=== PATIENT | male | born 1940 | race Hispanic/Latino ===

== ENCOUNTER 2021-01-05 13:04 | Inpatient (IN) | payer OTHER ==
[~2021-01-05] VITALS: Ht 170.2 cm; Wt 79.4 kg
[~2021-01-05 13:04] MED LIST: ACTOS15 MG PO; ASPIRIN81 MG PO; CIPROFLOXACIN500 M1 PO; COUMADIN3 MG PO; DOXAZOSIN MESYLA4 MG PO; FINASTERIDE5 MG PO; GLIMEPIRIDE4 MG PO; HYDROCHLOROTH12.5 MG PO; LANOXIN250 MCG PO; LOPRESSOR25 MG PO; METFORMIN HCL500 MG PO; MEVACOR20 MG PO; NORVASC10 MG PO; ZESTRIL20 MG PO
[2021-01-05 13:47] LABS: BASOPHILS % 0.1 % (0.0-1.0); HEMATOCRIT 34.8 % (38.2-49.6); HEMOGLOBIN 10.5 g/dL (14.0-18.0); LYMPHOCYTES # (AUTO) 0.6 (1.0-3.2); LYMPHOCYTES % 6.7 % (18.0-39.1); MEAN CORPUSCULAR HEMOGLOBIN 25.6 pg (28-32); MEAN CORPUSCULAR HGB CONC 30.2 g/dL (31-35); MEAN CORPUSCULAR VOLUME 84.9 fL (81-99); MONOCYTES # (AUTO) 1.1 (0.2-0.8); MONOCYTES % 11.7 % (4.4-11.3); NEUTROPHILS # (AUTO) 7.6 (2.1-6.9); NEUTROPHILS % 79.9 % (38.7-80.0); PLATELET COUNT 141 x10e3/uL (140-360); RED CELL DISTRIBUTION WIDTH 22.5 % (11.7-14.4)
[2021-01-05 14:12] LABS: ALBUMIN 2.7 g/dL (3.5-5.0); ALBUMIN/GLOBULIN RATIO 0.8 (0.8-2.0); ANION GAP 23.5 mmol/L (8-16); CALCIUM 8.4 mg/dL (8.4-10.2); CREATININE, SERUM 2.11 mg/dL (0.72-1.25); POTASSIUM 4.5 mmol/L (3.5-5.1)
[2021-01-05] MEDS ORDERED: SODIUM CHLORIDE 0.9% 1000ML 1,000 ML IV SCH ×2 (14:30→16:15)
[2021-01-05] MEDS ORDERED: INSULIN REGULAR, HUMAN 100 UNIT/1 ML IV ONE (14:30)
[2021-01-05] MEDS ORDERED: IOPAMIDOL 370 MG/ML 200 ML INFUS..BTL INJ ONE (14:45)
[2021-01-05] MEDS ORDERED: SODIUM CHLORIDE 0.9% 50ML 50 ML ONE (14:45)
[2021-01-05] MEDS: PIPERACILLIN/TAZO 4.5 GM 100 ML IV SCH (14:49)
[2021-01-05 15:06] LABS: PROTHROMBIN TIME > 120.0 seconds (11.9-14.5)
[2021-01-05 15:22] LABS: ABG HCO3 16 mmol/L (22-26); ABG PCO2 25 mmHg (35-45); ABG PH 7.42 (7.35-7.45); ABG PO2 71 mmHg (80-105); ABG TCO2 17
[2021-01-05] MEDS ORDERED: ONDANSETRON HCL INJ 2MG/ML 2ML 2 MG/ML VIAL IV PRN (16:45)
[2021-01-05 18:12] VITALS: BP 122/69
[2021-01-05 18:13] VITALS: BP 122/69
[2021-01-05 18:15] VITALS: BP 122/69
[2021-01-05] MEDS: SODIUM CHLORIDE 0.9% 1000ML 1,000 ML IV SCH (18:46)
[2021-01-05 20:00] VITALS: BP 114/64
[2021-01-06] VITALS (7 sets, daily range): BP systolic 96–133; BP diastolic 42–78
[2021-01-06] MEDS ORDERED: PHYTONADIONE 10 MG/ML AMP IV ONE (02:15)
[2021-01-06] MEDS ORDERED: PHYTONADIONE 10MG/ML 20 MG in SODIUM CHLORIDE 0.9% 50ML 50 ML SC ONE (02:45)
[2021-01-06] MEDS: PIPERACILLIN/TAZO 4.5 GM 100 ML IV SCH ×2 (03:00→15:00)
[2021-01-06] MEDS: SODIUM CHLORIDE 0.9% 1000ML 1,000 ML IV SCH (04:30)
[2021-01-06 05:02] LABS: BASOPHILS % 0.1 % (0.0-1.0); HEMATOCRIT 28.4 % (38.2-49.6); HEMOGLOBIN 8.5 g/dL (14.0-18.0); LYMPHOCYTES # (AUTO) 0.5 (1.0-3.2); LYMPHOCYTES % 5.7 % (18.0-39.1); MEAN CORPUSCULAR HEMOGLOBIN 25.5 pg (28-32); MEAN CORPUSCULAR HGB CONC 29.9 g/dL (31-35); MEAN CORPUSCULAR VOLUME 85.3 fL (81-99); MONOCYTES # (AUTO) 1.1 (0.2-0.8); MONOCYTES % 12.7 % (4.4-11.3); NEUTROPHILS # (AUTO) 6.6 (2.1-6.9); NEUTROPHILS % 80.3 % (38.7-80.0); PLATELET COUNT 90 x10e3/uL (140-360); RED BLOOD COUNT 3.33 x10e6/uL (4.3-5.7); RED CELL DISTRIBUTION WIDTH 22.5 % (11.7-14.4)
[2021-01-06 05:26] LABS: ANION GAP 18.1 mmol/L (8-16); CALCIUM 7.8 mg/dL (8.4-10.2); CREATININE, SERUM 1.62 mg/dL (0.72-1.25); POTASSIUM 4.1 mmol/L (3.5-5.1)
[2021-01-06] MEDS ORDERED: DEXTROSE 50% SYRINGE 50 ML IV PRN (08:45)
[2021-01-06] MEDS ORDERED: DOXAZOSIN MESYLATE 2 MG TAB PO SCH (09:00)
[2021-01-06] MEDS ORDERED: SODIUM CHLORIDE 0.9% 250ML 250 ML ONE ×2 (09:09→16:17)
[2021-01-06] MEDS: METOPROLOL TARTRATE 50 MG TAB PO SCH ×2 (10:03→17:02)
[2021-01-06] MEDS: FINASTERIDE 5 MG TAB PO SCH (10:03)
[2021-01-06 10:23] LABS: PLATELET ESTIMATE MODERATELY DECREASED; PLATELET MORPHOLOGY COMMENT FEW LARGE; RBC MORPHOLOGY COMMENT NORMAL
[2021-01-06 10:24] LABS: ANISOCYTOSIS SLIGHT; HYPOCHROMASIA SLIGHT
[2021-01-06] MEDS: INSULIN LISPRO 100 UNIT/1 ML 3ML VIAL SQ SCH ×3 (11:30→20:44)
[2021-01-06 14:29] LABS: INR 1.12; PROTHROMBIN TIME 15.3 seconds (11.9-14.5)
[2021-01-06 14:30] LABS: PARTIAL THROMBOPLASTIN TIME 39.1 seconds (23.8-35.5)
[2021-01-06 15:32] LABS: FERRITIN 2278.15 ng/mL (21.81-274.66)
[2021-01-06 17:59] LABS: CLARITY,URINE CLEAR (CLEAR); COLOR,URINE YELLOW (YELLOW); KETONES,URINE NEGATIVE (NEGATIVE); LEUKOCYTE ESTERASE ,URINE NEGATIVE (NEGATIVE); NITRITE,URINE NEGATIVE (NEGATIVE); PROTEIN,URINE DIPSTICK 1+ (NEGATIVE); URINE UROBILINOGEN 0.2 mg/dL (0.2 - 1)
[2021-01-06 18:15] LABS: BACTERIA,URINE MODERATE /HPF
[2021-01-07] VITALS (8 sets, daily range): BP systolic 100–135; BP diastolic 46–73
[2021-01-07] MEDS: PIPERACILLIN/TAZO 4.5 GM 100 ML IV SCH ×2 (03:04→16:00)
[2021-01-07 04:59] LABS: HEMOGLOBIN 7.8 g/dL (14.0-18.0); MEAN CORPUSCULAR HEMOGLOBIN 25.5 pg (28-32); PLATELET COUNT 87 x10e3/uL (140-360); RED BLOOD COUNT 3.06 x10e6/uL (4.3-5.7); RED CELL DISTRIBUTION WIDTH 22.8 % (11.7-14.4)
[2021-01-07 05:11] LABS: INR 1.02; PROTHROMBIN TIME 14.2 seconds (11.9-14.5)
[2021-01-07 05:12] LABS: PARTIAL THROMBOPLASTIN TIME 34.7 seconds (23.8-35.5)
[2021-01-07 05:19] LABS: MAGNESIUM 2.6 MG/DL (1.3-2.1); PHOSPHORUS 2.9 MG/DL (2.3-4.7)
[2021-01-07 05:42] LABS: THYROID STIMULATING HORMONE 0.353 uIU/mL (0.350-4.940)
[2021-01-07] MEDS: INSULIN LISPRO 100 UNIT/1 ML 3ML VIAL SQ SCH ×4 (08:30→21:42)
[2021-01-07 08:34] LABS: LYMPHOCYTES % (MANUAL) 2 % (19-48); METAMYELOCYTES % (MANUAL) 3 % (0-0); MONOCYTES % (MANUAL) 2 % (3.4-9.0); NEUTROPHILS % (MANUAL) 93 % (40-74); NUCLEATED RED BLOOD CELLS 1
[2021-01-07] MEDS ORDERED: IRON SUCROSE 100 MG in SODIUM CHLORIDE 0.9% 100 ML 100 ML IV SCH (09:00)
[2021-01-07] MEDS: FINASTERIDE 5 MG TAB PO SCH (09:00)
[2021-01-07] MEDS: METOPROLOL TARTRATE 50 MG TAB PO SCH ×2 (09:58→21:57)
[2021-01-07] MEDS ORDERED: FENTANYL CITRATE/PF 100MCG/2 ML INJ ONE (14:32)
[2021-01-07] MEDS ORDERED: MIDAZOLAM HCL 2 MG/2 ML VIAL ONE (14:32)
[2021-01-07] MEDS ORDERED: SODIUM CHLORIDE 0.9% 500ML 500 ML ONE (14:34)
[2021-01-07] MEDS: TAMSULOSIN HCL 0.4 MG CAP PO SCH (21:50)
[2021-01-07] MEDS: IRON SUCROSE 100 MG in SODIUM CHLORIDE 0.9% 100 ML 100 ML IV SCH (21:57)
[2021-01-08] VITALS (7 sets, daily range): BP systolic 91–107; BP diastolic 45–70
[2021-01-08] MEDS: PIPERACILLIN/TAZO 4.5 GM 100 ML IV SCH ×2 (03:19→15:39)
[2021-01-08 05:45] LABS: HEMATOCRIT 26.2 % (38.2-49.6); LYMPHOCYTES # (AUTO) 0.6 (1.0-3.2); LYMPHOCYTES % 6.1 % (18.0-39.1); MEAN CORPUSCULAR HEMOGLOBIN 25.8 pg (28-32); MEAN CORPUSCULAR HGB CONC 30.5 g/dL (31-35); MEAN CORPUSCULAR VOLUME 84.5 fL (81-99); MONOCYTES # (AUTO) 0.9 (0.2-0.8); MONOCYTES % 10.4 % (4.4-11.3); NEUTROPHILS # (AUTO) 7.5 (2.1-6.9); NEUTROPHILS % 82.5 % (38.7-80.0); PLATELET COUNT 94 x10e3/uL (140-360); RED CELL DISTRIBUTION WIDTH 23.7 % (11.7-14.4)
[2021-01-08 06:13] LABS: ALBUMIN 2.2 g/dL (3.5-5.0); ALBUMIN/GLOBULIN RATIO 0.6 (0.8-2.0); ANION GAP 19.7 mmol/L (8-16); CALCIUM 8.6 mg/dL (8.4-10.2); CREATININE, SERUM 1.85 mg/dL (0.72-1.25); POTASSIUM 3.7 mmol/L (3.5-5.1)
[2021-01-08] MEDS: Morphine 4mg Syringe 4 MG/ML INJ IV PRN (08:47)
[2021-01-08] MEDS: FINASTERIDE 5 MG TAB PO SCH (08:50)
[2021-01-08] MEDS: INSULIN LISPRO 100 UNIT/1 ML 3ML VIAL SQ SCH ×4 (08:54→20:57)
[2021-01-08] MEDS: METOPROLOL TARTRATE 50 MG TAB PO SCH ×2 (16:34→20:56)
[2021-01-08] MEDS ORDERED: Vancomycin IV 1 GM in SODIUM CHLORIDE 0.9% 250ML 250 ML IV ONE (19:15)
[2021-01-08] MEDS: TAMSULOSIN HCL 0.4 MG CAP PO SCH (20:56)
[2021-01-08] MEDS: IRON SUCROSE 100 MG in SODIUM CHLORIDE 0.9% 100 ML 100 ML IV SCH (21:00)
[2021-01-09] MEDS: PIPERACILLIN/TAZO 4.5 GM 100 ML IV SCH ×2 (03:31→17:03)
[2021-01-09 05:31] VITALS: BP 103/53
[2021-01-09 05:54] LABS: BASOPHILS % 0.1 % (0.0-1.0); HEMATOCRIT 26.2 % (38.2-49.6); HEMOGLOBIN 7.7 g/dL (14.0-18.0); LYMPHOCYTES # (AUTO) 0.5 (1.0-3.2); MEAN CORPUSCULAR HEMOGLOBIN 26.1 pg (28-32); MEAN CORPUSCULAR HGB CONC 29.4 g/dL (31-35); MEAN CORPUSCULAR VOLUME 88.8 fL (81-99); MONOCYTES # (AUTO) 0.7 (0.2-0.8); MONOCYTES % 9.3 % (4.4-11.3); NEUTROPHILS # (AUTO) 6.5 (2.1-6.9); NEUTROPHILS % 83.4 % (38.7-80.0); PLATELET COUNT 96 x10e3/uL (140-360); RED BLOOD COUNT 2.95 x10e6/uL (4.3-5.7); RED CELL DISTRIBUTION WIDTH 24.3 % (11.7-14.4)
[2021-01-09 06:24] LABS: ALBUMIN 2.2 g/dL (3.5-5.0); ALBUMIN/GLOBULIN RATIO 0.6 (0.8-2.0); ANION GAP 20.4 mmol/L (8-16); CALCIUM 8.9 mg/dL (8.4-10.2); CREATININE, SERUM 2.13 mg/dL (0.72-1.25); POTASSIUM 3.4 mmol/L (3.5-5.1)
[2021-01-09] MEDS: INSULIN LISPRO 100 UNIT/1 ML 3ML VIAL SQ SCH ×4 (07:30→21:05)
[2021-01-09 07:35] VITALS: BP 105/58
[2021-01-09 07:44] VITALS: BP 105/58
[2021-01-09] MEDS: Vancomycin IV 1 GM in SODIUM CHLORIDE 0.9% 250ML 250 ML IV SCH ×2 (08:12→21:01)
[2021-01-09] MEDS ORDERED: DORZOLAMIDE-TIM10 ML OP (08:28)
[2021-01-09] MEDS ORDERED: LATANOPROST2.5 ML OP (08:28)
[2021-01-09] MEDS: METOPROLOL TARTRATE 50 MG TAB PO SCH ×2 (09:00→20:59)
[2021-01-09] MEDS ORDERED: MIDAZOLAM HCL 2 MG/2 ML VIAL ONE (10:11)
[2021-01-09] MEDS ORDERED: FENTANYL CITRATE/PF 100MCG/2 ML INJ ONE (10:11)
[2021-01-09] MEDS ORDERED: SODIUM CHLORIDE 0.9% 500ML 500 ML ONE (10:12)
[2021-01-09] MEDS: FINASTERIDE 5 MG TAB PO SCH (11:32)
[2021-01-09 16:04] VITALS: BP 110/50
[2021-01-09] MEDS: DORZOLAMIDE/TIMOLOL (OPTH SOL) 10 ML DRPETTE OP SCH (17:03)
[2021-01-09 20:00] VITALS: BP 112/58
[2021-01-09] MEDS: TAMSULOSIN HCL 0.4 MG CAP PO SCH (20:57)
[2021-01-09] MEDS: LATANOPROST(OPTH) 2.5 ML BTL OP SCH (20:57)
[2021-01-09] MEDS: IRON SUCROSE 100 MG in SODIUM CHLORIDE 0.9% 100 ML 100 ML IV SCH (20:57)
[2021-01-09] MEDS: Morphine 4mg Syringe 4 MG/ML INJ IV PRN (21:00)
[2021-01-10] VITALS (8 sets, daily range): BP systolic 96–122; BP diastolic 53–72
[2021-01-10 04:59] LABS: HEMATOCRIT 25.9 % (38.2-49.6); HEMOGLOBIN 7.6 g/dL (14.0-18.0); LYMPHOCYTES # (AUTO) 0.5 (1.0-3.2); LYMPHOCYTES % 5.7 % (18.0-39.1); MEAN CORPUSCULAR HEMOGLOBIN 25.8 pg (28-32); MEAN CORPUSCULAR HGB CONC 29.3 g/dL (31-35); MEAN CORPUSCULAR VOLUME 87.8 fL (81-99); MONOCYTES % 10.1 % (4.4-11.3); NEUTROPHILS # (AUTO) 7.8 (2.1-6.9); NEUTROPHILS % 82.7 % (38.7-80.0); PLATELET COUNT 111 x10e3/uL (140-360); RED BLOOD COUNT 2.95 x10e6/uL (4.3-5.7); RED CELL DISTRIBUTION WIDTH 24.6 % (11.7-14.4)
[2021-01-10] MEDS: PIPERACILLIN/TAZO 4.5 GM 100 ML IV SCH ×2 (05:18→16:02)
[2021-01-10] MEDS: Vancomycin IV 1 GM in SODIUM CHLORIDE 0.9% 250ML 250 ML IV SCH (07:00)
[2021-01-10] MEDS: INSULIN LISPRO 100 UNIT/1 ML 3ML VIAL SQ SCH ×4 (07:30→20:15)
[2021-01-10] MEDS: DORZOLAMIDE/TIMOLOL (OPTH SOL) 10 ML DRPETTE OP SCH ×2 (09:00→16:02)
[2021-01-10] MEDS: FINASTERIDE 5 MG TAB PO SCH (09:00)
[2021-01-10] MEDS: METOPROLOL TARTRATE 50 MG TAB PO SCH ×2 (09:00→20:16)
[2021-01-10] MEDS ORDERED: SODIUM CHLORIDE 0.9% 250ML 250 ML ONE (16:30)
[2021-01-10] MEDS: LATANOPROST(OPTH) 2.5 ML BTL OP SCH (20:15)
[2021-01-10] MEDS: TAMSULOSIN HCL 0.4 MG CAP PO SCH (20:15)
[2021-01-10] MEDS: IRON SUCROSE 100 MG in SODIUM CHLORIDE 0.9% 100 ML 100 ML IV SCH (20:16)
[2021-01-10] MEDS ORDERED: MELATONIN 5 MG TABLET PO PRN (21:00)
[2021-01-11] VITALS (7 sets, daily range): BP systolic 94–103; BP diastolic 51–64
[2021-01-11] MEDS: PIPERACILLIN/TAZO 4.5 GM 100 ML IV SCH ×2 (03:00→15:23)
[2021-01-11 05:35] LABS: BASOPHILS % 0.1 % (0.0-1.0); HEMATOCRIT 25.7 % (38.2-49.6); HEMOGLOBIN 7.6 g/dL (14.0-18.0); LYMPHOCYTES # (AUTO) 0.5 (1.0-3.2); LYMPHOCYTES % 5.7 % (18.0-39.1); MEAN CORPUSCULAR HEMOGLOBIN 26.2 pg (28-32); MEAN CORPUSCULAR HGB CONC 29.6 g/dL (31-35); MEAN CORPUSCULAR VOLUME 88.6 fL (81-99); MONOCYTES # (AUTO) 0.9 (0.2-0.8); MONOCYTES % 10.4 % (4.4-11.3); NEUTROPHILS # (AUTO) 6.9 (2.1-6.9); NEUTROPHILS % 81.9 % (38.7-80.0); PLATELET COUNT 110 x10e3/uL (140-360)
[2021-01-11] MEDS: INSULIN LISPRO 100 UNIT/1 ML 3ML VIAL SQ SCH ×4 (08:23→20:56)
[2021-01-11] MEDS: METOPROLOL TARTRATE 50 MG TAB PO SCH (08:24)
[2021-01-11] MEDS: FINASTERIDE 5 MG TAB PO SCH (08:25)
[2021-01-11] MEDS: DORZOLAMIDE/TIMOLOL (OPTH SOL) 10 ML DRPETTE OP SCH ×2 (09:43→16:45)
[2021-01-11 10:37] LABS: INR 1.45; PROTHROMBIN TIME 18.8 seconds (11.9-14.5)
[2021-01-11 10:38] LABS: PARTIAL THROMBOPLASTIN TIME 35.3 seconds (23.8-35.5)
[2021-01-11] MEDS: METOPROLOL TARTRATE 25 MG TAB PO SCH ×2 (12:40→18:00)
[2021-01-11] MEDS ORDERED: TRAZODONE HCL 50 MG TAB PO PRN (21:00)
[2021-01-11] MEDS: LATANOPROST(OPTH) 2.5 ML BTL OP SCH (21:25)
[2021-01-11] MEDS: TAMSULOSIN HCL 0.4 MG CAP PO SCH (21:35)
[2021-01-11] MEDS: IRON SUCROSE 100 MG in SODIUM CHLORIDE 0.9% 100 ML 100 ML IV SCH (21:35)
[2021-01-11] MEDS ORDERED: SODIUM CHLORIDE 0.9% 50ML 50 ML ONE (23:00)
[2021-01-11] MEDS ORDERED: PHYTONADIONE 10 MG/ML AMP IV ONE (23:00)
[2021-01-12] VITALS (8 sets, daily range): BP systolic 101–123; BP diastolic 48–64
[2021-01-12] MEDS: PIPERACILLIN/TAZO 4.5 GM 100 ML IV SCH ×2 (02:56→16:35)
[2021-01-12] MEDS: METOPROLOL TARTRATE 25 MG TAB PO SCH ×4 (06:00→16:52)
[2021-01-12 06:32] LABS: BASOPHILS % 0.1 % (0.0-1.0); HEMATOCRIT 27.6 % (38.2-49.6); HEMOGLOBIN 8.1 g/dL (14.0-18.0); LYMPHOCYTES # (AUTO) 0.3 (1.0-3.2); LYMPHOCYTES % 3.6 % (18.0-39.1); MEAN CORPUSCULAR HGB CONC 29.3 g/dL (31-35); MEAN CORPUSCULAR VOLUME 88.7 fL (81-99); MONOCYTES # (AUTO) 0.9 (0.2-0.8); MONOCYTES % 10.2 % (4.4-11.3); NEUTROPHILS # (AUTO) 7.5 (2.1-6.9); NEUTROPHILS % 83.2 % (38.7-80.0); PLATELET COUNT 118 x10e3/uL (140-360); RED BLOOD COUNT 3.11 x10e6/uL (4.3-5.7); RED CELL DISTRIBUTION WIDTH 25.9 % (11.7-14.4)
[2021-01-12 06:40] LABS: INR 1.29; PROTHROMBIN TIME 17.1 seconds (11.9-14.5)
[2021-01-12] MEDS: INSULIN LISPRO 100 UNIT/1 ML 3ML VIAL SQ SCH ×4 (07:26→20:55)
[2021-01-12] MEDS: FINASTERIDE 5 MG TAB PO SCH (07:27)
[2021-01-12] MEDS: DORZOLAMIDE/TIMOLOL (OPTH SOL) 10 ML DRPETTE OP SCH ×2 (09:01→16:51)
[2021-01-12] MEDS ORDERED: FENTANYL CITRATE/PF 100MCG/2 ML INJ ONE (13:22)
[2021-01-12] MEDS ORDERED: MIDAZOLAM HCL 2 MG/2 ML VIAL ONE (13:22)
[2021-01-12] MEDS ORDERED: ALBUMIN 25% 12.5GM 50ML 100 ML IV ONE (13:40)
[2021-01-12] MEDS ORDERED: Morphine 4mg Syringe 4 MG/ML INJ ONE (15:04)
[2021-01-12 15:30] LABS: BODY FLUID APPEARANCE TURBID; BODY FLUID COLOR RED; BODY FLUID TYPE PERITONEAL
[2021-01-12 16:04] LABS: RBC,BODY FLUID 28000 cells/uL; WBC,BODY FLUID 258 cells/uL
[2021-01-12 16:43] LABS: LYMPHOCYTES,BODY FLUID 52 %; MONO/MACROPHG,BODY FLUID 28 %; NEUTROPHILS,BODY FLUID 2 %
[2021-01-12 16:44] LABS: OTHER CELLS,BODY FLUID 18 %
[2021-01-12] MEDS: LATANOPROST(OPTH) 2.5 ML BTL OP SCH (20:55)
[2021-01-12] MEDS: TAMSULOSIN HCL 0.4 MG CAP PO SCH (20:55)
[2021-01-13] VITALS (7 sets, daily range): BP systolic 105–116; BP diastolic 54–65
[2021-01-13] MEDS: PIPERACILLIN/TAZO 4.5 GM 100 ML IV SCH ×2 (03:15→15:36)
[2021-01-13] MEDS ORDERED: SODIUM CHLORIDE 0.9% 250ML 250 ML ONE (03:19)
[2021-01-13 05:54] LABS: ALBUMIN 2.3 g/dL (3.5-5.0); ALBUMIN/GLOBULIN RATIO 0.7 (0.8-2.0); ANION GAP 25.7 mmol/L (8-16); CALCIUM 8.7 mg/dL (8.4-10.2); CREATININE, SERUM 3.79 mg/dL (0.72-1.25); POTASSIUM 3.7 mmol/L (3.5-5.1)
[2021-01-13] MEDS: METOPROLOL TARTRATE 25 MG TAB PO SCH ×5 (06:00→23:02)
[2021-01-13 06:19] LABS: BASOPHILS % 0.1 % (0.0-1.0); HEMATOCRIT 27.8 % (38.2-49.6); HEMOGLOBIN 8.2 g/dL (14.0-18.0); LYMPHOCYTES # (AUTO) 0.5 (1.0-3.2); LYMPHOCYTES % 4.7 % (18.0-39.1); MEAN CORPUSCULAR HEMOGLOBIN 26.1 pg (28-32); MEAN CORPUSCULAR HGB CONC 29.5 g/dL (31-35); MEAN CORPUSCULAR VOLUME 88.5 fL (81-99); MONOCYTES # (AUTO) 1.1 (0.2-0.8); MONOCYTES % 10.7 % (4.4-11.3); NEUTROPHILS # (AUTO) 8.1 (2.1-6.9); NEUTROPHILS % 82.3 % (38.7-80.0); PLATELET COUNT 150 x10e3/uL (140-360); RED BLOOD COUNT 3.14 x10e6/uL (4.3-5.7); RED CELL DISTRIBUTION WIDTH 26.6 % (11.7-14.4)
[2021-01-13 07:49] LABS: HYPOCHROMASIA SLIGHT; LYMPHOCYTES % (MANUAL) 4 % (19-48); MONOCYTES % (MANUAL) 9 % (3.4-9.0); NEUTROPHILS % (MANUAL) 87 % (40-74); NUCLEATED RED BLOOD CELLS 2; RBC MORPHOLOGY COMMENT ABNORMAL
[2021-01-13 07:50] LABS: ANISOCYTOSIS MODERATE; OVALOCYTES FEW
[2021-01-13] MEDS: FINASTERIDE 5 MG TAB PO SCH (09:29)
[2021-01-13] MEDS: DORZOLAMIDE/TIMOLOL (OPTH SOL) 10 ML DRPETTE OP SCH ×2 (09:30→17:06)
[2021-01-13] MEDS: INSULIN LISPRO 100 UNIT/1 ML 3ML VIAL SQ SCH ×4 (09:31→21:30)
[2021-01-13] MEDS: SODIUM BICARBONATE 8.4% 50 ML in SODIUM CHLORIDE 0.45% 1,000 ML IV SCH ×2 (11:44→22:19)
[2021-01-13] MEDS: HYDROCODONE/APAP 5MG-325MG TAB PO PRN (18:10)
[2021-01-13] MEDS: LATANOPROST(OPTH) 2.5 ML BTL OP SCH (22:19)
[2021-01-13] MEDS: TAMSULOSIN HCL 0.4 MG CAP PO SCH (22:19)
[2021-01-14] VITALS: BP 109/56
[2021-01-14] MEDS: HYDROCODONE/APAP 5MG-325MG TAB PO PRN (01:00)
[2021-01-14 04:00] VITALS: BP 111/56
[2021-01-14] MEDS: PIPERACILLIN/TAZO 4.5 GM 100 ML IV SCH ×2 (04:10→14:46)
[2021-01-14] MEDS ORDERED: SODIUM CHLORIDE 0.9% 100 ML ONE (04:21)
[2021-01-14 05:00] LABS: BASOPHILS % 0.1 % (0.0-1.0); HEMATOCRIT 27.8 % (38.2-49.6); HEMOGLOBIN 8.2 g/dL (14.0-18.0); LYMPHOCYTES # (AUTO) 0.6 (1.0-3.2); LYMPHOCYTES % 4.9 % (18.0-39.1); MEAN CORPUSCULAR HEMOGLOBIN 26.3 pg (28-32); MEAN CORPUSCULAR HGB CONC 29.5 g/dL (31-35); MEAN CORPUSCULAR VOLUME 89.1 fL (81-99); MONOCYTES # (AUTO) 1.1 (0.2-0.8); MONOCYTES % 9.2 % (4.4-11.3); NEUTROPHILS # (AUTO) 9.6 (2.1-6.9); NEUTROPHILS % 83.8 % (38.7-80.0); PLATELET COUNT 146 x10e3/uL (140-360); RED BLOOD COUNT 3.12 x10e6/uL (4.3-5.7); RED CELL DISTRIBUTION WIDTH 27.3 % (11.7-14.4)
[2021-01-14 05:34] LABS: ANION GAP 21.7 mmol/L (8-16); CALCIUM 8.1 mg/dL (8.4-10.2); CREATININE, SERUM 4.14 mg/dL (0.72-1.25); POTASSIUM 3.7 mmol/L (3.5-5.1)
[2021-01-14] MEDS: METOPROLOL TARTRATE 25 MG TAB PO SCH ×3 (06:39→15:46)
[2021-01-14 07:57] VITALS: BP 104/70
[2021-01-14] MEDS: INSULIN LISPRO 100 UNIT/1 ML 3ML VIAL SQ SCH ×3 (07:59→15:46)
[2021-01-14] MEDS: FINASTERIDE 5 MG TAB PO SCH (08:27)
[2021-01-14 09:16] VITALS: BP 104/70
[2021-01-14] MEDS: SODIUM BICARBONATE 8.4% 50 ML in SODIUM CHLORIDE 0.45% 1,000 ML IV SCH (09:51)
[2021-01-14 11:45] VITALS: BP 96/58
[2021-01-14] MEDS: DORZOLAMIDE/TIMOLOL (OPTH SOL) 10 ML DRPETTE OP SCH ×2 (13:43→15:46)
[2021-01-14] MEDS ORDERED: FENTANYL 25 MCG/HR PATCH TOP SCH (15:00)
[2021-01-14 16:11] VITALS: BP 106/62
== END 2021-01-14 18:30 | disposition hospice, home (50) | DRG 435 ==
LOC: ER 13:15 → ERHOLD 16:42 → MED/SURG 17:15
PROVIDERS: ADMIT Internal Medicine; ATTEND Internal Medicine
PROC: 30243K1 Transfusion of Nonautologous Frozen Plasma into Central Vein, Percutaneous Approach (ICD-10-PCS; 2021-01-06)
PROC: 0W993ZZ Drainage of Right Pleural Cavity, Percutaneous Approach (ICD-10-PCS; principal; 2021-01-07)
PROC: 0FB03ZX Excision of Liver, Percutaneous Approach, Diagnostic (ICD-10-PCS; 2021-01-12)
DX: C22.7 Other specified carcinomas of liver (principal); N17.0 Acute kidney failure with tubular necrosis; C78.00 Secondary malignant neoplasm of unspecified lung; J91.0 Malignant pleural effusion; D68.8 Other specified coagulation defects; C78.6 Secondary malignant neoplasm of retroperitoneum and peritoneum; I13.0 Hypertensive heart and chronic kidney disease with heart failure and stage 1 through stage 4 chronic kidney disease, or unspecified chronic kidney disease; D69.59 Other secondary thrombocytopenia; I25.10 Atherosclerotic heart disease of native coronary artery without angina pectoris; Z95.0 Presence of cardiac pacemaker; Z95.1 Presence of aortocoronary bypass graft; E11.22 Type 2 diabetes mellitus with diabetic chronic kidney disease; D63.1 Anemia in chronic kidney disease; D50.9 Iron deficiency anemia, unspecified; I50.9 Heart failure, unspecified; N18.9 Chronic kidney disease, unspecified; Z79.899 Other long term (current) drug therapy; K74.60 Unspecified cirrhosis of liver; Z20.822 Contact with and (suspected) exposure to COVID-19; G47.00 Insomnia, unspecified
CPT/HCPCS: 32555; 36415; 36600; 47000; 49083; 70450; 71045; 71250; 72125; 72131; 74177; 74470; 76942; 80048; 80053; 80162; 80202; 80320; 81001; 82105; 82140; 82378; 82607; 82728; 82746; 82805; 82948; 83010; 83036; 83540; 83605; 83615; 83690; 83735; 84100; 84152; 84157; 84443; 84466; 84484; 85007; 85025; 85027; 85045; 85379; 85384; 85610; 85730; 86301; 86850; 86900; 87040; 87070; 87071; 87205; 88112; 88305; 88307; 88312; 88342; 89051; 93005; 94799; 96372; 97139; 99251; 99284; C1729; J1756; J1817; J2250; J2270; J2543; J3010; J3370; J3430; J7030; J7040; J7050; P9017; Q9967; U0002